=== PATIENT | male | born 1990 | race Caucasian/White ===

== ENCOUNTER 2021-01-19 18:18 | Emergency (ER) | payer BC ==
[2021-01-19] MEDS ORDERED: Boostrix 0.5 ML (Tdap) VIAL ONE ×2 (20:48→21:02)
[2021-01-19] MEDS ORDERED: Boostrix 0.5 ML (Tdap) VIAL IM ONE (21:00)
[2021-01-19] MEDS ORDERED: Rabies Vaccine Human 2.5 UNITS VIAL IM ONE (21:00)
== END 2021-01-19 21:23 | disposition home or self-care (01) ==
LOC: ERS 18:18
DX: Z20.3 Contact with and (suspected) exposure to rabies (principal); Z23 Encounter for immunization
CPT/HCPCS: 90471; 90472; 90675; 90715

== ENCOUNTER → 2021-01-22 | Day surgery (SDC) | payer BC, SELFPAY ==
[~2021-01-22] MED LIST: Rabies Vaccine Human 2.5 UNITS VIAL IM ONE
== END ==
LOC: ER/OP 17:33
DX: Z23 Encounter for immunization (principal)
CPT/HCPCS: 90471; 90675

== ENCOUNTER → 2021-01-26 | Day surgery (SDC) | payer SELFPAY | LOC: ER/OP 21:58 | PROVIDERS: ATTEND Pathology Anatomic Pathology & Clinical Pathology | DX: Z23 Encounter for immunization (principal) | CPT/HCPCS: 90471; 90675 ==

== ENCOUNTER → 2021-02-03 | Day surgery (SDC) | payer SELFPAY ==
[~2021-02-03] MED LIST changes: -Rabies Vaccine Human 2.5 UNITS VIAL IM ONE; +Rabies Vaccine Human 2.5 UNITS VIAL ONE
== END ==
LOC: ER/OP 17:26
DX: Z23 Encounter for immunization (principal)
CPT/HCPCS: 90471; 90675